=== PATIENT | male | born 1970 | race Caucasian/White ===

== ENCOUNTER 2016-11-06 09:50 | Day surgery (SDC) | payer OTHER ==
[~2016-11-06] VITALS: Ht 182.9 cm; Wt 100.3 kg
[2016-11-06] VITALS (15 sets, daily range): BP systolic 100–124; BP diastolic 65–85; PULSE 60–77; RESP 10–20; Ht 182.9 cm; Wt 100.3 kg
[~2016-11-06 09:50] MED LIST: CEFAZOLIN 2 GM/50 ML (PMX) 50 ML IVPB ONE; DESFLURANE 15 MIN ONE; SOD CHLORIDE 0.9% 1,000 ML IV SCH
[2016-11-06] MEDS ORDERED: DICL75TA2 PO (10:24)
[2016-11-06] MEDS ORDERED: OXYC-209 PO (10:24)
[2016-11-06] MEDS ORDERED: FENTAnyl 50 MCG/ML VIAL ONE (11:27)
[2016-11-06] MEDS ORDERED: PROPOFOL 20 ML ONE (11:27)
[2016-11-06] MEDS ORDERED: MIDAZOLAM 1 MG/ML 2 ML INJ ONE (11:27)
[2016-11-06] MEDS ORDERED: LIDOCAINE 2% (MDV) 20 ML INJ ONE (11:35)
[2016-11-06] MEDS ORDERED: BUPIVACAINE 0.5% (SDV) 30 ML INJ ONE (11:35)
[2016-11-06] MEDS ORDERED: CEFAZOLIN 1 GM INJ ONE (11:55)
[2016-11-06] MEDS ORDERED: DEXAMETHASONE 4 MG/ML 1 ML INJ ONE (11:55)
[2016-11-06] MEDS ORDERED: KETOROLAC 30 MG INJ ONE (11:55)
[2016-11-06] MEDS ORDERED: ONDANSETRON 4 MG INJ ONE (11:55)
[2016-11-06] MEDS ORDERED: METOCLOPRAMIDE 10 MG INJ ONE (11:55)
[2016-11-06] MEDS ORDERED: MEPERIDINE 25 MG INJ IV PRN (12:00)
[2016-11-06] MEDS ORDERED: morphine (1 MG/ML) 10ML SYRINGE IV PRN ×3 (12:00)
[2016-11-06] MEDS ORDERED: METOCLOPRAMIDE 10 MG INJ IV PRN (12:00)
[2016-11-06] MEDS ORDERED: DIPHENHYDRAMINE 50 MG INJ IV PRN (12:00)
[2016-11-06] MEDS ORDERED: ONDANSETRON 4 MG INJ IV PRN (12:00)
[2016-11-06] MEDS ORDERED: HYDROmorphONE (0.2 MG/ML) 10ML SYG IV PRN ×3 (12:00)
[2016-11-06] MEDS ORDERED: HYDROCODONE/APAP (5/325) TAB PO ONE (12:30)
--- NOTE | 2016-11-06 13:00 | OPR ---
DATE OF OPERATION: 11/06/2016 INDICATION: This is a 46-year-old male with a left upper back tumor. He requests surgical excision . Risks, alternatives, benefits, and personnel were discussed with the patient. The patient expres sed his understanding and consents to the operation. PREOPERATIVE DIAGNOSIS: Left upper back tumor. POSTOPERATIVE DIAGNOSIS: Left upper back tumor. OPERATION PERFORMED: 1. Excision of left upper back subfascial intramuscular tumor with 9 cm size incision and 9 x 4 cm size mass. 2. Localized adjacent tissue transfer with the use of skin flaps. SURGEON: Sherine Chaves MD SPECIMEN: Left upper back tumor. COMPLICATIONS: None. ANESTHESIA: General. DESCRIPTION OF PROCEDURE: The patient was taken to the OR and prepped and draped in the usual ster ile fashion. Surgical timeout was performed. IV antibiotics were given. A 10 blade was used to ma ke an incision transversely across the left upper back. Dissection cautery was carried down to the fascia and the fascia is divided with cautery. The muscle is split and deep dissection was performe d. The left upper back tumor was identified and excised with cautery en bloc. There was good hemos tasis. The fascia was then reapproximated with interrupted 3-0 Vicryl. Due to the large tissue def ect, localized adjacent tissue transfer with the use of skin flaps was performed. Multilayer closur e with interrupted 3-0 Vicryl and skin eddie. Local anesthesia was injected. Dry dressings were applied. Dictated By: SHERINE CHARLES/JUANA Conf#: [id number] DID#: [id number]
[2016-11-06] MEDS ORDERED: PIPERACIL/TAZO 3.375GM/100ML BAG ONE (18:40)
[2016-11-06] MEDS ORDERED: GLYCOPYRROLATE 0.4 MG INJ ONE (18:40)
[2016-11-06] MEDS ORDERED: NEOSTIGMINE 3 MG/3 ML SYRINGE ONE (18:40)
[2016-11-06] MEDS ORDERED: SEVOFLURANE 15 MIN ONE (18:40)
== END 2016-11-06 14:58 | disposition home or self-care (01) ==
LOC: SDS 09:50
PROVIDERS: ATTEND Surgery
DX: D17.1 Benign lipomatous neoplasm of skin and subcutaneous tissue of trunk (principal)
CPT/HCPCS: 14000; 88307; J0690; J1100; J1885; J2250; J2543; J2710; J2765; J3010; Z7512; Z7610; J2405

== ENCOUNTER → 2018-10-14 | Day surgery (SDC) | payer OTHER ==
[2018-10-14] VITALS (14 sets, daily range): BP systolic 112–128; BP diastolic 78–91; PULSE 60–79; RESP 10–21; Ht 177.8 cm; Wt 98.3 kg
[~2018-10-14] VITALS: Ht 177.8 cm; Wt 98.3 kg
[~2018-10-14] MED LIST changes: +BACITRACIN 0.9 GM OINT ONE; +BUPIVACAINE 0.5% (SDV) 30 ML INJ ONE; +CEFAZOLIN 1 GM INJ ONE; -CEFAZOLIN 2 GM/50 ML (PMX) 50 ML IVPB ONE; -DESFLURANE 15 MIN ONE; +DICL75TA2 PO; +EPHEDrine SULFATE 50 MG/5 ML SYG ONE; +FENTAnyl 50 MCG/ML VIAL ONE; +HYDROCODONE/APAP (10/325) TAB PO PRN; +HYDROmorphONE 1 MG/5 ML IV SYRINGE IV PRN; +LIDOCAINE 2% (MDV) 20 ML INJ ONE; +LIDOCAINE 2% (SDV) 5 ML INJ ONE; +MIDAZOLAM 1 MG/ML 2 ML INJ ONE; +OXYC-209 PO; +PHENYLephrine (100 MCG/ML) 5ML SYG ONE; +PROPOFOL 200 MG INJ ONE; +ROPIVACAINE 0.5 % 30 ML VIAL ONE; +SEVOFLURANE 15 MIN ONE; -SOD CHLORIDE 0.9% 1,000 ML IV SCH
--- NOTE | 2018-10-14 16:43 | PREAC ---
Date/Time of Note Date/Time of Note DATE: 10/14/18 TIME: 16:42 Anesthesia Eval and Record Evaluation Time Pre-Procedure Interview DATE: 10/14/18 TIME: 16:42 Age 48 Sex male NPO: 8 hrs Preoperative diagnosis Joint pain hammertoe Planned procedure GILDARDO OSTEOTOMY LEFT SECOND METATARSAL Past Medical History Past Medical History: None Surgery & Anesthesia Issues No known issue Meds Anticoagulation: No Beta Rigoberto within 24 hr: No Reason Beta Rigoberto not given: Pt. not on B-Rigoberto Discontinued Reported Medications Diclofenac Sodium* (Diclofenac Sodium*) 75 Mg Tablet.dr, 75 MG PO BID, #60 TAB 11/06/16 Oxycodone HCl/Acetaminophen (Percocet 10-325 mg Tablet) 1 Each Tablet, 1 EACH PO Q6 PRN for PAIN, TAB 11/06/16 Meds reviewed: Yes Allergies Coded Allergies: No Known Allergies (Verified Allergy, Unknown, 11/06/16) Allergies Reviewed: Yes Labs/Studies Labs Reviewed: Reviewed by anesthesiologist test: N/A Studies: ECG Pre-procedure Exam Airway: Adequate mouth opening Mallampati: Mallampati II Teeth: Normal Lung: Normal Heart: Normal ASA Physical Status ASA physical status: 1 Emergency: None Planned Anesthetic General/MAC: ETT Pre-operative Attestations Prior to commencing anesthesia and surgery, the patient was re-evaluated, there was verification of: *The patient's identity *The results of appropriate recent lab work and preoperative vital signs *The above evaluation not changing prior to induction *Anesthetic plan, risk benefits, alternative and complications discussed with patient/family; questions answered; patient/family understands, accepts and wishes to proceed. ONEYDA COLLAZO Oct 14, 2018 16:43
--- NOTE | 2018-10-14 18:14 | HPN ---
Date/Time of Note Date/Time of Note DATE: 10/14/18 TIME: 18:14 Interval H&P Admission Note Pt. seen H&P reviewed: No system changes TRACEE IYER DPM Oct 14, 2018 18:14
--- NOTE | 2018-10-14 19:20 | SIPON ---
Date/Time of Note Date/Time of Note DATE: 10/14/18 TIME: 19:18 Operative Report Preoperative Diagnosis metatarsalgia left foot with hammertoe deformity left second toe. Postoperative Diagnosis Metatarsalgia left foot with hammertoe correction left second toe. Operation/Procedure Performed wesley osteotomy left second metatarsal. hammertoe correction left second toe. 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
--- NOTE | 2018-10-14 19:36 | PAC ---
Date/Time of Note Date/Time of Note DATE: 10/14/18 TIME: 19:35 Post-Anesthesia Notes Post-Anesthesia Note Last documented vital signs Vital Signs Date Temp Pulse Resp B/P (MAP) Pulse Ox O2 O2 Flow FiO2 Time Delivery Rate 10/14/18 98 81 18 115/65 98 Room Air 5 Activity: WNL Respiratory function: WNL Cardiovascular function: WNL Mental status: Baseline Pain reasonably controlled: Yes Hydration appropriate: Yes Nausea/Vomiting absent: Yes IKER GAYLE DO Oct 14, 2018 19:36
--- NOTE | 2018-10-15 13:51 | RADRPT ---
Vent Rate: 68 bpm RR Interval: 0 msec WV Interval: 136 msec QRS Duration: 94 msec QT Interval: 412 msec QTC Interval: 438 msec P-R-T Kol[place]: 21 - -5 - 48 degrees Normal sinus rhythm Normal ECG Electronically Signed By: Randy Diggs
--- NOTE | 2018-10-16 10:22 | OPR ---
DATE OF OPERATION: 10/14/2018 SURGEON: Yvrose Mendez DPM ANESTHESIOLOGIST: Robb Baer MD ANESTHESIA: Local with IV sedation. PREOPERATIVE DIAGNOSES: 1. Left foot metatarsalgia. 2. Hammertoe deformity, left 2nd toe. POSTOPERATIVE DIAGNOSES: 1. Left foot metatarsalgia. 2. Hammertoe deformity, left 2nd toe. PROCEDURES PERFORMED: 1. Abbey osteotomy left 2nd metatarsal. 2. Hammertoe correction, left 2nd digit with K-wire stabilization. DESCRIPTION OF PROCEDURE: The patient was brought into the operating room, placed on the table in a secure supine position. Cardiac morning, IV sedation and an ankle pneumatic tourniquet were utilized for this case. Preoperatively, a total of 10 mL of 0.5 percent Marcaine plain mixed with 2 percent lidocaine plain were infiltrated into the left foot in the form of a local block. Upon achieving anesthesia, the left foot and leg were prepped and draped in the usual sterile manner. Procedure number 1 was then performed after inflating the ankle tourniquet to 250 mmHg. Procedure number 1 was then performed, Abbey osteotomy left 2nd metatarsal. A 4 cm incision was placed from the base of the 2nd metatarsal head proximally. The incision was deepened. Superficial bleeders were cauterized and bovied as necessary. The joint capsule was identified. A linear capsulotomy was performed exposing the metatarsophalangeal joint. The power saw was utilized to perform an oblique osteotomy from distal superior to proximal plantar. The capital fragment was shifted medially 2 mm and fixated with 2 x 2.0 mm x 12 mm cannulated Yudith screws. Good stability was noted with fixation and intraoperative C-arm was utilized to view the position, which was satisfactory. The remaining bone was rongeured and rasped smooth. Procedure number 2 was then performed, hammertoe correction, left 2nd digit. A 2 cm dorsal incision was placed over the proximal interphalangeal joint of the left 2nd toe. A transverse capsulotomy and tenotomy was performed over the proximal interphalangeal joint of the 2nd digit. The head of the proximal phalanx was severed and resected with a power sagittal saw. The base of the intermediate phalanx was denuded of cartilage. Arthrodesis of the 2nd digit was achieved with a 0.045 Elaine wire. The surgical sites were irrigated with sterile saline mixed with bacitracin solution. The extensor tendon was reapproximated with 4-0 Vicryl simple interrupted sutures. Subcutaneous tissue was closed with 4-0 Vicryl simple interrupted sutures. The skin edges were reapproximated with horizontal mattress 4-0 nylon stitches. Dressing consisted of Xeroform gauze, 4 inch Kerlix, and 2 inch Coban into some a compressive dressing. Immediate hyperemia was noted to all digits upon deflating the ankle tourniquet. The patient tolerated the above procedure well, left the OR with vital signs stable and satisfactory. Patient will follow up 1 week postop. Dictated By: Yvrose Mendez DPM /anusha/gisela /Document#: [id number]
== END | disposition home or self-care (01) ==
LOC: SDS 15:40
PROVIDERS: ATTEND Podiatrist Primary Podiatric Medicine
DX: M77.42 Metatarsalgia, left foot (principal); M20.42 Other hammer toe(s) (acquired), left foot; R94.31 Abnormal electrocardiogram [ECG] [EKG]
CPT/HCPCS: 28285; 28308; 73630; 93005; J0690; J2250; J2370; J2795; J3010; L3260; Z7512; Z7610

== ENCOUNTER 2019-03-06 04:38 | Emergency (ER) | payer OTHER ==
[~2019-03-06] VITALS: Ht 182.9 cm; Wt 100.6 kg
[~2019-03-06 04:38] MED LIST changes: -BACITRACIN 0.9 GM OINT ONE; -BUPIVACAINE 0.5% (SDV) 30 ML INJ ONE; -CEFAZOLIN 1 GM INJ ONE; -DICL75TA2 PO; -EPHEDrine SULFATE 50 MG/5 ML SYG ONE; +FAMO-96 PO; -FENTAnyl 50 MCG/ML VIAL ONE; -HYDROCODONE/APAP (10/325) TAB PO PRN; -HYDROmorphONE 1 MG/5 ML IV SYRINGE IV PRN; -LIDOCAINE 2% (MDV) 20 ML INJ ONE; -LIDOCAINE 2% (SDV) 5 ML INJ ONE; -MIDAZOLAM 1 MG/ML 2 ML INJ ONE; -OXYC-209 PO; -PHENYLephrine (100 MCG/ML) 5ML SYG ONE; -PROPOFOL 200 MG INJ ONE; -ROPIVACAINE 0.5 % 30 ML VIAL ONE; -SEVOFLURANE 15 MIN ONE; +SUCR1TAB56 PO
[2019-03-06 04:44] VITALS: Ht 182.9 cm; Wt 100.6 kg
[2019-03-06] MEDS ORDERED: SOD CHLORIDE 0.9% 1,000 ML IV STA (06:30)
[2019-03-06] MEDS ORDERED: LIDOCAINE/MYLANTA 40 ML BTL PO STA (06:30)
[2019-03-06] MEDS ORDERED: morphine 4 MG/ML VIAL IV STA (06:30)
--- NOTE | 2019-03-06 06:39 | ERD ---
ER Documentation Chief Complaint Chief Complaint abdominal paingoing to the back pain, nausea & diarrhea x 2-3days HPI 48-year-old male no significant past medical history presenting with 2 to 3 days of upper abdominal pain radiating to back, nausea, nonbloody loose diarrhea about 5 episodes per day. Patient denies any recent traveling, exposure to vela or river water, or antibiotics. Denies any fevers or chills. Denies any vo miting. Denies any cardiopulmonary symptoms or infectious symptoms other than the diarrhea. No dysuria. No hematuria. No history of abdominal surgeries. ROS All systems reviewed and are negative except as per history of present illness. Allergies Allergies: Coded Allergies: No Known Allergies (Verified Allergy, Unknown, 10/14/18) PMhx/Soc History of Surgery: Yes (FEMUR FX 2002,BONE GRAFT, R HIP REP.LUMBAR FUSION, CERVICAL FUSION) Anesthesia Reaction: No Hx Neurological Disorder: No Hx Respiratory Disorders: No Hx Cardiac Disorders: No Hx Psychiatric Problems: No Hx Miscellaneous Medical Probl: No Hx Alcohol Use: No Hx Substance Use: No Hx Tobacco Use: No Smoking Status: Never smoker Physical Exam Vitals Vital Signs Date Temp Pulse Resp B/P (MAP) Pulse Ox O2 O2 Flow FiO2 Time Delivery Rate 03/06/19 98 14 132/94 99 Room Air 08:00 (107) 03/06/19 98.8 101 17 130/78 97 04:44 (95) Physical Exam Const: Well-appearing Head: Atraumatic Eyes: Normal Conjunctiva ENT: Normal External Ears, Nose and Mouth. Neck: Full range of motion. No meningismus. Resp: Clear to auscultation bilaterally Cardio: Regular rate and rhythm, no murmurs Abd: Soft, mild epigastric tender, non distended. Normal bowel sounds Skin: No petechiae or rashes Back: No midline or flank tenderness Ext: No cyanosis, or edema Neur: Awake and alert Psych: Normal Mood and Affect Result Diagram: 03/06/19 0509 03/06/19 0509 Results 24 hrs Laboratory Tests Test 03/06/19 05:09 03/06/19 10:30 White Blood Count 8.9 10^3/ul Red Blood Count 4.95 10^6/ul Hemoglobin 14.6 g/dl Hematocrit 43.1 % Mean Corpuscular Volume 87.1 fl Mean Corpuscular Hemoglobin 29.5 pg Mean Corpuscular Hemoglobin Concent 33.9 g/dl Red Cell Distribution Width 13.4 % Platelet Count 199 10^3/UL Mean Platelet Volume 9.9 fl Immature Granulocytes % 0.200 % Neutrophils % 80.3 % Lymphocytes % 10.3 % Monocytes % 8.5 % Eosinophils % 0.5 % Basophils % 0.2 % Nucleated Red Blood Cells % 0.0 /100WBC Immature Granulocytes # 0.020 10^3/ul Neutrophils # 7.1 10^3/ul Lymphocytes # 0.9 10^3/ul Monocytes # 0.8 10^3/ul Eosinophils # 0.0 10^3/ul Basophils # 0.0 10^3/ul Nucleated Red Blood Cells # 0.0 10^3/ul Sodium Level 133 mmol/L Potassium Level 3.4 mmol/L Chloride Level 100 mmol/L Carbon Dioxide Level 22 mmol/L Anion Gap 11 Blood Urea Nitrogen 6 mg/dl Creatinine 0.81 mg/dl Est Glomerular Filtrat Rate mL/min > 60 mL/min Glucose Level 128 mg/dl Calcium Level 8.7 mg/dl Total Bilirubin 0.6 mg/dl Direct Bilirubin 0.00 mg/dl Indirect Bilirubin 0.6 mg/dl Aspartate Amino Transf (AST/SGOT) 22 IU/L Alanine Aminotransferase (ALT/SGPT) 26 IU/L Alkaline Phosphatase 87 IU/L Total Protein 7.8 g/dl Albumin 4.1 g/dl Globulin 3.70 g/dl Albumin/Globulin Ratio 1.10 Lipase 56 U/L Urine Color YELLOW Urine Clarity CLEAR Urine pH 5.0 Urine Specific Koppel 1.009 Urine Ketones NEGATIVE mg/dL Urine Nitrite NEGATIVE mg/dL Urine Bilirubin NEGATIVE mg/dL Urine Urobilinogen NEGATIVE mg/dL Urine Leukocyte Esterase NEGATIVE Valeriy/ul Urine Microscopic RBC 0 /HPF Urine Microscopic WBC 2 /HPF Urine Mucus FEW /HPF Urine Hemoglobin 1+ mg/dL Urine Glucose NEGATIVE mg/dL Urine Total Protein NEGATIVE mg/dl Current Medications Medications Dose Sig/Dianna Start Time Status Last (Trade) Ordered Route PRN Stop Time Admin Dose Reason Admin Sodium 1,000 ml @ Q1H STAT 03/06/19 DC 03/06/19 Chloride 1,000 mls/hr IV 06:30 06:41 03/06/19 07:29 Morphine 4 mg ONCE STAT 03/06/19 DC 03/06/19 Sulfate IV 06:30 06:40 (morphine) 03/06/19 06:32 40 ml ONCE STAT 03/06/19 DC 03/06/19 Miscellaneous PO 06:30 06:41 Medication 03/06/19 06:32 (Gi Cocktail (2)) Procedures/MDM Limited Abdominal Aorta Ultrasound performed by me: Indication: Abdominal pain, Rule out AAA Interpretation: No AAA Images archived in the medical record Patient presents with abdominal pain, has flatus , BM afebrile Patient is well appearing. Non acute abdominal exam. Low suspicion for AAA given no palpable mass and negative US . Low suspicion for mesenteric ischemia given pain not out of proportion to exam, and no major risk factors . Given exam and history, low suspicion for acute abdominal process, such as acute cholecystitis, pancreatitis, perforated viscus, atypical appendicitis or torsion. Bloodwork without evidence of severe metabolic derangement or infection. Patient remains PO tolerant. Serial abdominal exam without increase in abdominal pain. Departure Diagnosis: Primary Impression: Abdominal pain Abdominal location: generalized Qualified Codes: R10.84 - Generalized abdominal pain Condition: Stable NIKITA TOMLINSON MD Mar 06, 2019 06:39
[2019-03-06 11:20] VITALS: BP 151/95; PULSE 100; RESP 18
== END 2019-03-06 11:40 | disposition home or self-care (01) ==
LOC: E/R 04:38
DX: R10.84 Generalized abdominal pain (principal)
CPT/HCPCS: 36415; 76705; 80053; 81001; 83690; 85025; 96374; J2270; J7030; Z7502; Z7610